=== PATIENT | female | born 2000 | race Hispanic/Latino ===

== ENCOUNTER 2020-04-22 14:10 | Emergency (ER) | payer SELFPAY ==
[~2020-04-22] VITALS: Ht 167.6 cm; Wt 127.0 kg
[2020-04-22] MEDS ORDERED: AZITHROMYCIN 250 MG TAB PO ONE (16:15)
[2020-04-22] MEDS ORDERED: PREDNISONE 20 MG TAB PO ONE (16:15)
[2020-04-22] MEDS ORDERED: CEFTRIAXONE SOD 1 GM VIAL IM ONE (16:15)
[2020-04-22] MEDS ORDERED: METHYLPREDNISOLONE SOD SUCC 125 MG/2ML VIAL IM ONE (16:30)
[2020-04-22] MEDS ORDERED: METHYLPREDNISOLONE SOD SUCC 125 MG/2ML VIAL ONE (16:42)
[2020-04-22] MEDS ORDERED: CEFTRIAXONE SOD 1 GM VIAL ONE (16:42)
[2020-04-22] MEDS ORDERED: AZITHROMYCIN 250 MG TAB ONE (16:42)
[2020-04-22] MEDS ORDERED: PREDNISONE20 MG PO (16:59)
[2020-04-22] MEDS ORDERED: IVERMECTIN3 MG PO (16:59)
[2020-04-22] MEDS ORDERED: BROMFED DM COU118 ML PO (16:59)
[2020-04-22] MEDS ORDERED: ALBUTEROL2.5 MG/3 M NEB (16:59)
[2020-04-22] MEDS ORDERED: PROAIR HFA INH8.5 GM PO (16:59)
[2020-04-22] MEDS ORDERED: AZITHROMYCIN500 MG PO (16:59)
[2020-04-22 17:04] VITALS: BP 109/70
== END 2020-04-22 17:04 | disposition home or self-care (01) ==
LOC: FSED 14:21
DX: U07.1 COVID-19 (principal); J18.9 Pneumonia, unspecified organism; R05 Cough; J98.01 Acute bronchospasm; R06.02 Shortness of breath
CPT/HCPCS: 71046; 81003; 81025; 96372; 99283; J0696; J2930

== ENCOUNTER 2021-01-28 13:38 | Emergency (ER) | payer SELFPAY ==
[~2021-01-28] VITALS: Ht 167.6 cm; Wt 124.7 kg
[~2021-01-28 13:38] MED LIST: ALBUTEROL2.5 MG/3 M NEB; AZITHROMYCIN500 MG PO; BROMFED DM COU118 ML PO; IVERMECTIN3 MG PO; PREDNISONE20 MG PO; PROAIR HFA INH8.5 GM PO
[2021-01-28] MEDS ORDERED: ONDANSETRON HCL INJ 2MG/ML 2ML 2 MG/ML VIAL IV STA (13:51)
[2021-01-28] MEDS ORDERED: FAMOTIDINE 20 MG/2 ML VIAL IV STA (13:51)
[2021-01-28] MEDS ORDERED: SODIUM CHLORIDE 0.9% 1000ML 1,000 ML IV STA (13:51)
[2021-01-28] MEDS ORDERED: SODIUM CHLORIDE 0.9% 50ML 50 ML ONE (14:07)
[2021-01-28] MEDS ORDERED: IOPAMIDOL 370 MG/ML 200 ML INFUS..BTL INJ ONE (14:08)
[2021-01-28] MEDS ORDERED: ONDANSETRON HCL INJ 2MG/ML 2ML 2 MG/ML VIAL ONE (14:29)
[2021-01-28] MEDS ORDERED: SODIUM CHLORIDE 0.9% 1000ML 1,000 ML ONE (14:29)
[2021-01-28] MEDS ORDERED: FAMOTIDINE 20 MG/2 ML VIAL IV ONE (14:30)
[2021-01-28] MEDS ORDERED: CIPRO500 MG PO (15:16)
[2021-01-28] MEDS ORDERED: ONDANSETRON ODT4 MG PO (15:16)
[2021-01-28] MEDS ORDERED: PEPCID20 MG PO (15:16)
== END 2021-01-28 15:34 | disposition home or self-care (01) ==
LOC: FSED 13:46
DX: R10.33 Periumbilical pain (principal); R11.2 Nausea with vomiting, unspecified; R19.7 Diarrhea, unspecified
CPT/HCPCS: 74177; 80053; 81003; 81025; 85025; 99284; J2405; J7030; Q9967